=== PATIENT | female | born 1990 | race African-American/Black ===

== ENCOUNTER 2023-12-05 10:09 | Emergency (ER) | payer OTHER, SELFPAY ==
[2023-12-05 11:08] VITALS: BP 141/97; PULSE 75; RESP 18; TEMP 36.4; O2SAT 99; BMI 27.3
--- NOTE | 2023-12-05 11:15 | ED_ITS ---
HPI - General Adult General Chief complaint: Abdominal Pain Stated complaint: Abd pain Time Seen by Provider: 12/05/23 16:19 Source: patient Mode of arrival: ambulatory Limitations: language barrier History of Present Illness ED Provider: brittany DELA CRUZ narrative: Patient is status post normal vaginal delivery on 11/13 complaining of for last 3 days body aches low back denies any significant vaginal discharge no significant abdominal pain no nausea no vomiting no fever or chills patient does not have any PCP Related Data Previous Rx's ?Medication ?Instructions ?Recorded cefuroxime axetil 250 mg tablet 250 mg PO BID 7 days #14 tabs 12/05/23 ibuprofen 600 mg tablet 600 mg PO Q6H PRN fever or pain 12/05/23 #30 tabs Allergies Allergy/AdvReac Type Severity Reaction Status Date / Time No Known Allergies Allergy Verified 12/05/23 11:22 Review of Systems 2 Review of Systems: Yes all other systems are reviewed and are negative PMFSH Social History Social History Smoked in Last 30 Days: No Use of substances other than those prescribed or required for medical reasons: No Advance Directives: No Advance Directives Information Provided: No Do you have a plan to hurt others: No Plan Patient : No Physical Exam ED Vital Signs: Vital Signs - 24 hr 12/05/23 11:08 12/05/23 18:01 Temperature 97.5 F Pulse Rate 75 67 Respiratory Rate 18 16 Blood Pressure 141/97 H 145/91 H Pulse Oximetry 99 97 Oxygen Delivery Method Room Air Room Air BMI result Body Mass Index 27.3 Appearance: Alert. Oriented X3. No acute distress. Eyes: No pallor or icterus ENT: Pharynx normal. Oral Mucosa moist Neck: Normal inspection. Neck supple. CVS: Normal heart rate and rhythm. Pulses normal. Respiratory: No respiratory distress. Equal air entry bilateral, no wheezing/rales/rhonchi Abdomen: Soft and nontender. Bowel sounds are present, no mass palpable, no CVA tenderness Skin: Skin warm and dry. Normal skin color. Normal skin turgor. Extremities: No lower extremity edema. No calf tenderness Neuro: Oriented X 3. Course Course Course Narrative: RME performed by Loretta Huddleston PA-C. Patient is a 33 year old assigned female at presenting to the emergency department with abdominal pain and minimal vaginal bleeding. Patient states on 11/22/2023 she delivered a baby at [facility] and this is her 3rd delivery. Patient states that she had no complications with delivery or the . Detailed physical exam and review of systems are deferred to the primary mill roller. Labs ordered. Patient placed back in the waiting room pending room availability and results. Medications Administered Discontinued Medications Generic Name Dose Route Start Last Admin Trade Name Mehul PRN Reason Stop Dose Admin Ibuprofen 600 mg 12/05/23 18:03 12/05/23 18:14 Ibuprofen 600 Mg Tablet PO 12/05/23 18:04 600 mg ONCE ONE Administration Medical Decision Making Medical Decision Making [facility] Narrative: Patient with nonspecific multiple complaints UA showed WBCs likely UTI discharge patient home on Ceftin and ibuprofen advised to follow with regional sales director Differential Diagnosis Differential Diagnoses: The differential diagnosis associated with the presentation includes Lab Data [facility] Lab Attestation statement: I reviewed the patient's lab results. 12/05/23 11:44 12/05/23 11:44 Labs: Lab Results 12/05/23 12/05/23 12/05/23 Range/Units 11:43 11:44 11:47 WBC 5.1 (4.8-10.8) X10*3/uL RBC 4.42 (4.20-5.50) X10*6/uL Hgb 11.3 L (12.0-16.0) g/dl Hct 35.8 L (37.0-47.0) % MCV 81.0 (80.0-98.0) fL MCH 25.6 L (27.0-33.0) pg MCHC 31.6 (31.0-35.0) g/dl RDW 16.7 H (11.0-16.0) % Plt Count 376 (160-400) X10*3/uL MPV 9.5 (9.4-12.3) fL Immature Gran % (Auto) 0.2 (0.0-0.4) % Neut % (Auto) 61.8 (45-73) % Lymph % (Auto) 27.5 (20-40) % [place] % (Auto) 7.5 (2-11) % Eos % (Auto) 2.4 (0-4) % Baso % (Auto) 0.6 (0-2) % Lymph # (Auto) 1.4 (1.2-4.9) X10*3/uL [place] # (Auto) 0.4 (0.1-1.2) X10*3/uL Eos # (Auto) 0.1 (0.0-0.4) X10*3/uL Baso # (Auto) 0.0 (0.0-0.2) X10*3/uL Abs Immat Gran (auto) 0.01 (0.00-0.03) X10*3/uL Absolute Neuts (auto) 3.2 (2.0-8.3) x10*3/uL Absolute Nucleated RBC 0.000 (0.0-0.012) X10*3/uL Nucleated RBC % (auto) 0.0 (0.0-0.2) /100WBC PT 11.4 (11.1-13.3) SEC INR 0.9 (0.9-1.1) APTT 32.9 (26.0-36.8) SEC Sodium 142 (135-145) mmol/L Potassium 4.3 (3.3-5.1) mmol/L Chloride 108 (96-108) mmol/L Carbon Dioxide 21 L (22-29) mmol/L Anion Gap 17 (12-20) BUN 10 (9-16) mg/dL Creatinine 0.72 (0.5-1.4) mg/dL Estim Creat Clear Calc 98.3 Estimated GFR > 60 Random Glucose 88 (60-115) mg/dL Calcium 9.2 (8.4-10.2) mg/dL Magnesium 2.2 (1.6-2.6) mg/dL Total Bilirubin 0.2 (0.0-1.0) mg/dL AST 17 (5-31) U/L ALT 14 (0-31) U/L Alkaline Phosphatase 116 (39-117) U/L Total Protein 7.2 (6.5-8.0) g/dL Albumin 3.8 (3.5-5.0) g/dL Beta HCG, Quant < 2 mIU/mL Urine Color Urine Appearance Urine pH (5.0-9.0) Ur Specific Wendel (1.005-1.025) Urine Protein (Neg-Trace) mg/dL Urine Glucose (UA) (Negative) mg/dL Urine Ketones (Negative) mg/dL Urine Blood (Negative) Urine Nitrite (Negative) Ur Leukocyte Esterase (Negative) Urine RBC (0-2) /HPF Urine WBC (0-5) /HPF Ur Squamous Epith Cells (0-2) /HPF Urine Bacteria (None Seen) Hyaline Casts (0-2) /LPF Blood Type B Positive Antibody Screen NEGATIVE 12/05/23 Range/Units 18:46 WBC (4.8-10.8) X10*3/uL RBC (4.20-5.50) X10*6/uL Hgb (12.0-16.0) g/dl Hct (37.0-47.0) % MCV (80.0-98.0) fL MCH (27.0-33.0) pg MCHC (31.0-35.0) g/dl RDW (11.0-16.0) % Plt Count (160-400) X10*3/uL MPV (9.4-12.3) fL Immature Gran % (Auto) (0.0-0.4) % Neut % (Auto) (45-73) % Lymph % (Auto) (20-40) % Bonneville % (Auto) (2-11) % Eos % (Auto) (0-4) % Baso % (Auto) (0-2) % Lymph # (Auto) (1.2-4.9) X10*3/uL [place] # (Auto) (0.1-1.2) X10*3/uL Eos # (Auto) (0.0-0.4) X10*3/uL Baso # (Auto) (0.0-0.2) X10*3/uL Abs Immat Gran (auto) (0.00-0.03) X10*3/uL Absolute Neuts (auto) (2.0-8.3) x10*3/uL Absolute Nucleated RBC (0.0-0.012) X10*3/uL Nucleated RBC % (auto) (0.0-0.2) /100WBC PT (11.1-13.3) SEC INR (0.9-1.1) APTT (26.0-36.8) SEC Sodium (135-145) mmol/L Potassium (3.3-5.1) mmol/L Chloride (96-108) mmol/L Carbon Dioxide (22-29) mmol/L Anion Gap (12-20) BUN (9-16) mg/dL Creatinine (0.5-1.4) mg/dL Estim Creat Clear Calc Estimated GFR Random Glucose (60-115) mg/dL Calcium (8.4-10.2) mg/dL Magnesium (1.6-2.6) mg/dL Total Bilirubin (0.0-1.0) mg/dL AST (5-31) U/L ALT (0-31) U/L Alkaline Phosphatase (39-117) U/L Total Protein (6.5-8.0) g/dL Albumin (3.5-5.0) g/dL Beta HCG, Quant mIU/mL Urine Color Yellow Urine Appearance Cloudy Urine pH 7.0 (5.0-9.0) Ur Specific Wendel >= 1.030 H (1.005-1.025) Urine Protein 30 (1+) H (Neg-Trace) mg/dL Urine Glucose (UA) Negative (Negative) mg/dL Urine Ketones Trace (Negative) mg/dL Urine Blood Large (3+) H (Negative) Urine Nitrite Negative (Negative) Ur Leukocyte Esterase Large (3+) H (Negative) Urine RBC >20 H (0-2) /HPF Urine WBC >50 H (0-5) /HPF Ur Squamous Epith Cells 3-5 (0-2) /HPF Urine Bacteria Trace (None Seen) Hyaline Casts 0-2 (0-2) /LPF Blood Type Antibody Screen Discharge Plan Discharge Clinical Impression: UTI (urinary tract infection) Patient Disposition: Home, Self-Care Instructions: Urinary Tract Infection in Women (ED) Additional Instructions: Drink plenty of fluid Take antibiotic as prescribed Follow with PCP/Obgyn Prescriptions: New cefuroxime axetil 250 mg tablet 250 mg PO BID 7 Days Qty: 14 0RF ibuprofen 600 mg tablet 600 mg PO Q6H PRN (Reason: fever or pain) Qty: 30 0RF Referrals: Aristeo Martin MD [Physician] - 1 week Print Language: Comoran Creole
[2023-12-05 11:47] LABS: MANUAL DIFF FLAG NO
[2023-12-05 11:50] LABS: Basophils Percent Auto 0.6 % (0-2); Eosinophils Absolute Auto 0.1 X10*3/uL (0.0-0.4); Eosinophils Percent Auto 2.4 % (0-4); Hematocrit 35.8 % (37.0-47.0); Hemoglobin 11.3 g/dl (12.0-16.0); Imm Gran Abs Auto 0.01 X10*3/uL (0.00-0.03); Imm Gran Pct Auto 0.2 % (0.0-0.4); Lymphocytes Absolute Auto 1.4 X10*3/uL (1.2-4.9); Lymphocytes Percent Auto 27.5 % (20-40); Mean Corpuscular HGB Conc 31.6 g/dl (31.0-35.0); Mean Corpuscular Hemoglobin 25.6 pg (27.0-33.0); Mean Platelet Volume 9.5 fL (9.4-12.3); Monocytes Absolute Auto 0.4 X10*3/uL (0.1-1.2); Monocytes Percent Auto 7.5 % (2-11); Neutrophils Absolute Auto 3.2 x10*3/uL (2.0-8.3); Neutrophils Percent Auto 61.8 % (45-73); Platelet Count 376 X10*3/uL (160-400); Red Blood Count 4.42 X10*6/uL (4.20-5.50); Red Cell Distribution Width 16.7 % (11.0-16.0); White Blood Count 5.1 X10*3/uL (4.8-10.8)
[2023-12-05 11:54] LABS: INTERNATIONAL NORM RATIO 0.9 (0.9-1.1); Prothrombin Time 11.4 SEC (11.1-13.3)
[2023-12-05 11:57] LABS: Partial Thromboplastin Time 32.9 SEC (26.0-36.8)
[2023-12-05 12:06] LABS: Alanine Aminotransferase 14 U/L (0-31); Albumin Level 3.8 g/dL (3.5-5.0); Alkaline Phosphatase 116 U/L (39-117); Anion Gap 17 (12-20); Aspartate Amino Transferase 17 U/L (5-31); Bilirubin Total 0.2 mg/dL (0.0-1.0); Blood Urea Nitrogen 10 mg/dL (9-16); Calcium 9.2 mg/dL (8.4-10.2); Carbon Dioxide 21 mmol/L (22-29); Chloride 108 mmol/L (96-108); Creatinine Clr Calc Pharmacy 98.3; Estimated Glomerular Filt Rate > 60; Glucose Random 88 mg/dL (60-115); Magnesium 2.2 mg/dL (1.6-2.6); Potassium 4.3 mmol/L (3.3-5.1); Sodium 142 mmol/L (135-145); Total Protein 7.2 g/dL (6.5-8.0)
[2023-12-05 13:11] LABS: HCG Quantitative < 2 mIU/mL
[2023-12-05 18:01] VITALS: BP 145/91; PULSE 67; RESP 16; O2SAT 97
[2023-12-05] MEDS: Ibuprofen 600 MG TABLET PO (18:14)
[2023-12-05 18:56] LABS: Appearance Urine Cloudy; Color Urine Yellow; Glucose Urine UA Negative (Negative); Leukocyte Esterase Urine Large (3+) (Negative); Nitrite Urine Negative (Negative); Specific Gravity - Urine >= 1.030 (1.005-1.025); UMIC TRIGGER UACC YES; Urine Blood Large (3+) (Negative); Urine Ketones Trace mg/dL (Negative); Urine Protein 30 (1+) mg/dL (Neg-Trace)
[2023-12-05 19:01] LABS: Bacteria Urine Trace (None Seen); Hyaline Casts Urine 0-2 /LPF (0-2); RBC Urine >20 /HPF (0-2); UACC Culture Trigger YES; WBC Urine >50 /HPF (0-5)
[2023-12-05] MEDS: cefuroxime axetiL 250 MG TABLET PO (19:59)
[2023-12-05 20:10] VITALS: BP 154/92; PULSE 60; RESP 16; TEMP 36.8; O2SAT 99
== END 2023-12-05 20:12 | disposition home or self-care (01) ==
PROVIDERS: Physician Assistant Medical; Emergency Provider Internal Medicine
DX: N39.0 Urinary tract infection, site not specified (principal)
CPT/HCPCS: 36415; 80053; 81001; 83735; 84702; 85025; 85610; 85730; 86850; 86900; 86901; 87086; 99283; 99284

== ENCOUNTER 2024-02-09 12:04 | Outpatient (REF) | payer MEDICAID, SELFPAY ==
[2024-02-09 13:02] LABS: MANUAL DIFF FLAG NO
[2024-02-09 13:15] LABS: Basophils Percent Auto 0.7 % (0-2); Eosinophils Absolute Auto 0.1 X10*3/uL (0.0-0.4); Eosinophils Percent Auto 3.1 % (0-4); Hematocrit 35.8 % (37.0-47.0); Hemoglobin 11.7 g/dl (12.0-16.0); Imm Gran Abs Auto 0.02 X10*3/uL (0.00-0.03); Imm Gran Pct Auto 0.4 % (0.0-0.4); Lymphocytes Absolute Auto 1.8 X10*3/uL (1.2-4.9); Lymphocytes Percent Auto 40.4 % (20-40); Mean Corpuscular HGB Conc 32.7 g/dl (31.0-35.0); Mean Corpuscular Hemoglobin 25.7 pg (27.0-33.0); Mean Corpuscular Volume 78.5 fL (80.0-98.0); Mean Platelet Volume 10.2 fL (9.4-12.3); Monocytes Absolute Auto 0.4 X10*3/uL (0.1-1.2); Monocytes Percent Auto 7.7 % (2-11); Neutrophils Absolute Auto 2.2 x10*3/uL (2.0-8.3); Neutrophils Percent Auto 47.7 % (45-73); Platelet Count 302 X10*3/uL (160-400); Red Blood Count 4.56 X10*6/uL (4.20-5.50); White Blood Count 4.5 X10*3/uL (4.8-10.8)
[2024-02-09 13:30] LABS: Anion Gap 11 (12-20); Blood Urea Nitrogen 10 mg/dL (9-16); Calcium 8.7 mg/dL (8.4-10.2); Carbon Dioxide 25 mmol/L (22-29); Chloride 111 mmol/L (96-108); Estimated Glomerular Filt Rate > 60; Glucose Random 109 mg/dL (60-115); Potassium 3.8 mmol/L (3.3-5.1); Sodium 143 mmol/L (135-145)
== END 2024-02-09 12:05 | disposition home or self-care (01) ==
LOC: HO.HHCL 12:04
PROVIDERS: Visit Provider Internal Medicine
DX: N92.6 Irregular menstruation, unspecified (principal); R03.0 Elevated blood-pressure reading, without diagnosis of hypertension
CPT/HCPCS: 36415; 80048; 85025

== ENCOUNTER 2024-04-13 16:47 | Outpatient (REF) | payer MEDICAID, SELFPAY ==
--- NOTE | ~2024-04-13 | CT_ITS ---
EXAMINATION: CT ABDOMEN AND PELVIS WITHOUT CONTRAST CLINICAL INFORMATION: Back pain, hematuria, rule out nephrolithiasis. COMPARISON: None available. TECHNIQUE: Multidetector volumetric imaging was performed from the superior aspect of the liver through the pubic symphysis. Sagittal and coronal reformatted images were obtained on the technologist's workstation. This CT examination was performed using dose optimization techniques as appropriate, variously including the following: *Automated exposure control *Adjustment of mA and/or kV according to patient size (this includes techniques or standardized protocols for targeted exams where dose is matched to indication/reason for exam; i.e. extremities or head) *Use of iterative reconstruction technique DLP: 421 mGy-cm Exam submitted for review 06/08/2024 8:53 AM DELINQUENT TAX COLLECTOR. FINDINGS: LUNG BASES: -Lung bases are clear bilaterally. -Heart size is normal. -No effusions. -Normal GE junction. LIVER, GALLBLADDER, AND BILIARY TREE: The liver is normal in size, shape, and attenuation. No focal hepatic lesion or biliary ductal dilatation is present. The gallbladder is unremarkable with no evidence of radiopaque gallstones, gallbladder wall thickening, or obvious pericholecystic inflammatory changes. PANCREAS: Unremarkable. SPLEEN: Unremarkable. ADRENAL GLANDS: Unremarkable. KIDNEYS AND URETERS: The kidneys are normal in size, shape, and attenuation. No hydronephrosis, hydroureter, or calculi seen. No perinephric stranding. BLADDER: Unremarkable. GASTROINTESTINAL TRACT: The small and large bowel are unremarkable. The appendix is unremarkable. ABDOMINAL WALL: No significant hernia is appreciated. LYMPH NODES: Normal. VASCULAR: Unremarkable. PELVIC VISCERA: Uterus and adnexal structures appear normal. No masses. OSSEOUS STRUCTURES: No suspicious lytic or blastic bone lesion. CT/CT abdomen pelvis wo IV con IMPRESSION: 1. No acute findings in the abdomen or pelvis. No explanation for back pain and hematuria. 2. There is no evidence of urological calculus, hydronephrosis, or hydroureter. Electronically signed by: Cheng Henson MD 06/08/2024 10:49 AM [facility]
== END 2024-04-13 16:48 | disposition home or self-care (01) ==
LOC: HO.CT 16:47
PROVIDERS: PCP Internal Medicine; Visit Provider Internal Medicine
DX: M54.50 Low back pain, unspecified (principal); R31.9 Hematuria, unspecified
CPT/HCPCS: 74176

== ENCOUNTER → 2024-04-13 16:50 | Outpatient (BNV) | payer MEDICAID, SELFPAY | PROVIDERS: PCP Internal Medicine; Visit Provider Radiology Diagnostic Radiology | DX: R31.9 Hematuria, unspecified (principal); M54.50 Low back pain, unspecified | CPT/HCPCS: 74176 ==

== ENCOUNTER 2024-10-30 12:21 | Outpatient (REF) | payer MEDICAID, SELFPAY ==
--- NOTE | ~2024-10-30 | XR_ITS ---
EXAMINATION: XR THORACIC SPINE CLINICAL INFORMATION: PAIN COMPARISON: None available. TECHNIQUE: 3 views of the thoracic spine were obtained. FINDINGS: There is no acute fracture or bone destruction seen. The vertebral alignment is normal. There is no disc space narrowing. There is no abnormality of the paraspinal soft tissues. XR/XR thoracic spine 2V IMPRESSION: Unremarkable thoracic spine examination. Electronically signed by: Glenn Valladares MD 10/30/2024 01:48 PM EDT
--- NOTE | ~2024-10-30 | XR_ITS ---
EXAMINATION: XR LUMBOSACRAL SPINE 3 views CLINICAL INFORMATION: PAIN COMPARISON: None. TECHNIQUE: Three views of the lumbosacral spine. FINDINGS: There is normal lumbar lordosis. The vertebral heights, alignment and disc heights are normal. No visible acute fracture, dislocation or subluxation seen. The soft tissues are normal. The SI joints are normal. The paravertebral soft tissues are normal. XR/XR lumbar spine 2-3V IMPRESSION: Unremarkable lumbar spine exam. Electronically signed by: Glenn Valladares MD 10/30/2024 01:47 PM EDT
--- OUTSIDE RECORDS SUMMARY | 2024-10-30 13:43 | XMS_ITS | Clinical Summary ---
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 90 tablet 3 02/09/20 24 025 Active methylPREDNIS olone (Medrol Dospak) 4 MG tablets Follow schedule on package instructions 21 tablet 10/31/19 25 025 Active acetaminophen (Tylenol 8 Hour) 650 MG ER tablet Take 1 tablet (650 mg) by mouth every 8 (eight) hours if needed for mild pain. Do not crush, chew, or split. 40 tablet 1 10/31/19 25 025 Active lidocaine (Lidoderm) 5 % patch Apply 2 patches topically if needed each day for mild pain. Remove & discard patch within 12 hours or as directed by MD. 60 patch 1 10/31/19 25 Active naproxen (Naprosyn) 500 MG tablet Take 1 tablet (500 mg) by mouth if needed in the morning and at bedtime for mild pain. 40 tablet 1 10/31/19 25 026 Active medroxyPROGES TERone (Depo-Provera ) 150 MG/ML injectionIndi cations:Encou nter for female control Inject 1 mL (150 mg) into the muscle 1 (one) time for 1 dose. 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 contraception monitoring/administration 10/09/2024 Assessment & Plan (10/09/2024 4:00 PM EDT): Brochure with full information of different control methods in her anvik language Tiffanie provided today It was decided she will continue with Depo-Provera and then after she gets for second time she will think about having an IUD Missed period 10/09/2024 Assessment & Plan (10/09/2024 3:59 PM EDT): Urine test will be done today, results reviewed with patient it is negative Encounter for female control 02/22/2024 Assessment & Plan (02/22/2024 1:42 PM EDT): Patient will get her depo in 03/2024 Acute midline low back pain without sciatica 01/2024 Assessment & Plan (02/02/2024 10:34 AM EDT): 33 year old female with no significant PMHx, 2 months post pesents with c/o 3 days of intermittent midline back pain, when severe 8/10 currently 1/10. She states the back pain was severe last night but right now is down to 1/10. On exam there is NO tenderness , no evidence of spasm, full ROM of LS spine, Urine positive for LARGE blood, negative for all others Vital signs stable aside from mild elevation of BP. Abdomen is soft, no CVA tenderness Etiology ? Need to rule out kidney stones Plan: CT abdomen and Pelvis. Tylenol PRN for pain, instructed to come back if symptoms do not improve or present herself to the nearest ER if they worsen or any other associated symptoms present Elevated blood pressure reading 02/02/2024 Assessment & Plan (02/02/2024 10:39 AM EDT): Likely due to pain, will bring her back in 1 week for a BP check and if persistently elevated will decide course of action 'appointment scheduled for 02/11 here at the [facility] Has appointment for CHEMICAL DEPENDENCY THERAPIST 02/22/2024 Irregular menses 02/02/2024 Assessment & Plan (02/22/2024 1:42 PM EDT): TSH Pelvic US 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 Assessment & Plan (02/02/2024 10:40 AM EDT): Patient gave in [place], c/o irregular menses since giving , denies any pelvic or abdominal pain, no vaginal discharge Plan: Refer to Midwives Obtain CBC Headache 02/02/2024 Assessment & Plan (02/22/2024 1:42 PM EDT): Patient new baby I advise drink plenty of water to maintain hydration and acetaminophen PRN Assessment & Plan (02/02/2024 10:44 AM EDT): Mild, non specific, no neuro findings, no meningismus, no fever, Plan: Acetaminophen PRN, Obtain CBC rule out anemia ( pt post ) Follow up if no improvement Encounters Date Type Department Care Team Description 10/30/2024 11:15 AM EDT Office Visit [facility] [address] [place] [phone] Ketty Guevara DO Chronic bilateral low back pain without sciatica (Primary Dx); Chronic mid back pain 10/30/2024 Travel 10/30/2024 Telephone [facility] [address] [place] [phone] Karen Bhakta MD Triage 10/09/2024 1:45 PM EDT Office Visit [facility] [address] [place] [phone] Karen Bhakta MD Family planning, Depo-Provera contraception monitoring/administr ation (Primary Dx); Missed period 10/09/2024 Travel 10/02/2024 Patient Outreach [facility] [address] [place] [address] Karen Bhakta MD Pre-visit Planning ([facility] unable to reach LVM) 10/02/2024 Telephone [facility] [address] [place] [address] Karen Bhakta MD Chart Prep 09/19/2024 10:00 AM EDT Clinical Support [facility] [address] [place] [address] Lynette Kulkarni RN Encounter for surveillance of injectable contraceptive 09/19/2024 Telephone [facility] [address] [place] [address] Karen Bhakta MD Appointment Request 09/19/2024 Travel 09/07/2024 Population Health Risk Score Community Care [facility] ([facility] Department [address] [phone] Provider, Population Health Generic 08/06/2024 Telephone [facility] [address] [place] [address] Karen Bhakta MD Referral (Pt walked in stating she received a letter from [facility] in regards to someone from [facility] trying to call her to book an appt. Pt states she called [facility] along with Suzie Moreno electrician refinery and was told by someone in the office that pt was not in the system and that a referral was not received on their end. ) from Last 3 Months Immunizations Name Administration Dates Next Due Tdap 09/27/2023 Social History Tobacco Use Types Packs/Day Years Used Date Smoking Tobacco: Never Smokeless Tobacco: Never Tobacco Cessation:Counseling Given: Not Answered Alcohol Use Standard Drinks/Week Comments Never 0 (1 standard drink = 0.6 oz pur e alcohol) Depression Answer Date Recorded Patient Health Questionnaire-9 Score 0 02/22/2024 Patient Health Questionnaire-9 Score 0 02/22/2024 Last PHQ-9: Questionnaire Data Not on file 0 02/22/2024 Housing Stability Answer Date Recorded What is your housing situation today? I have joe macdonald 02/22/[address] you li ve. Do you have problems with any of the following? None of the above 02/22/2024 Food Insecurity Answer Date Recorded Within the past 12 months, y ou worried that your food would run out before you got money to buy more: Never True 02/22/2024 Within the past 12 months,th e food you bought just didn't last and you didn't have enough money to get more: Never True Transportation Answer Date Recorded In the past 12 months, has l ack of transportation kept you from medical appts, meetings, work or from getting things needed for daily living? No 02/22/2024 Utilities Answer Date Recorded In the past 12 months, has t he electric, gas, oil or water company threatened to shut off services in your home? No 02/22/2024 Depression Answer Date Recorded Patient Health Questionnaire-2 Score 0 02/22/2024 Internet Access Answer Date Recorded Internet Access Q1 Yes 02/24/2024 Internet Access Q2 Not on file 02/24/2024 Comments No Sex and Gender Information Value Date Recorded Sex Assigned at Female 01/06/2024 10:54 AM EDT Legal Sex Female 10:49 AM EDT Gender Identity Female 01/06/2024 10:54 AM EDT Sexual Orientation Straight 01/06/2024 10 :54 AM EDT Last Filed Vital Signs Vital Sign Reading Time Taken Comments Blood Pressure 128/70 10/30/2024 10:56 AM EDT Pulse 70 10/30/2024 10:56 AM EDT Temperature 37.1 ??C (98.8 ??F) 10/30/2024 10:56 AM E DT Respiratory Rate 16 10/30/2024 10:56 AM EDT Oxygen Saturation 99% 10/09/2024 1:38 PM EDT Inhaled Oxygen Concentration - - Weight 74.6 kg (164 lb 6.4 oz) 10/30/2024 10:56 AM EDT Height 160 cm (5' 3 ) 10/30/2024 10:56 AM EDT Body Mass Index 29.12 10/30/2024 10:56 AM EDT Plan of Treatment Upcoming Encounters Date Type Department Care Team (Late st Contact Info) Description 11/30/2024 2:45 PM EDT Procedure Visit [facility] [address] [place] [address] Karen Bhakta MD [address] [place] [address] 12/05/2024 10:00 AM EDT Clinical Support [address] [address] Health Maintenance Due Date Last Done Comments Hepatitis B Vaccines (1 of 3 - 19+ 3-dose series) 2010 Pap Smear 2012 Cervical Cancer Screening 2021 HPV/Cotest 2021 COVID-19 Vaccine (1 - 2023-2 5 season) 2024 Influenza Vaccine (#1) 2024 Depression Screening 02/21/2025 02/22/2024, 02/22/2024 SDOH Screening 02/21/2025 02/22/2024 Family Planning (PISQ) 07/04/2025 07/04/2024 Alcohol/Substance Use Screening 10/09/2025 10/09/2024 Tobacco Screening 10/09/2025 10/09/2024 DTaP/Tdap/Td Vaccines (2 - T d or Tdap) 09/26/2033 09/27/2023 Zoster Vaccines (1 of 2) 2041 RSV Patients and Patients Aged 60 years or older (1 - 1-dose 75+ series) 2066 HIV Screening Completed 02/22/2024 Hepatitis C Screening Completed 02/22/2024 HIB Vaccines Aged Out No longer eligi ble based on patient's age to complete this topic HPV Vaccines Aged Out No longer eligi ble based on patient's age to complete this topic Hepatitis A Vaccines Aged Out No long er eligible based on patient's age to complete this topic IPV Vaccines Aged Out No longer eligi ble based on patient's age to complete this topic Meningococcal Vaccine Aged Out No diaz ashley eligible based on patient's age to complete this topic Pneumococcal Vaccine: Pediatrics (0 to 5 Years) and At-Risk Patients (6 to 49) Years) Aged Out No longer eligible b ased on patient's age to complete this topic RSV under 20 months Aged Out No longe r eligible based on patient's age to complete this topic Rotavirus Vaccines Aged Out No longer eligible based on patient's age to complete this topic Procedures Procedure Name Priority Date/Time Associated Diagnosis Comments POCT , URINE Routine 10/30/2024 11:57 AM EDT Chronic bilateral low back pain without sciatica POCT URINALYSIS DIPSTICK Routine 10/30/2024 11:56 AM EDT Chronic bilateral low back pain without sciatica POCT , URINE Routine 10/09/2024 2:32 PM EDT Missed period POCT , URINE Routine 09/19/2024 10:14 AM EDT Encounter for surveillance of injectable contraceptive HEPATITIS C VIRAL RNA, QUANTITATIVE, REAL-TIME PCR Routine 02/22/2024 11:33 AM EDT Acute nonintractable headache, unspecified headache type HIV 1/2 ANTIGEN/ANTIBODY, FOURTH GENERATION W/RFL Routine 02/22/2024 11:33 AM EDT Acute nonintractable headache, unspecified headache type from Last 3 Months or Most Recently Relevant to Health Maintenance Results * POCT Urine (10/30/2024 11:57 AM EDT) Only the most recent of3 resultswithin the time period is included. Preg Test, Ur Negative Negative, Indeterminate, None Detected, Invalid, Specimen unsatisfactory for evaluation, Weakly Positive, 2+ QC Media Lot # [id number] Lot# Expiration Date ,312,026 Urine 10/30/2024 11:5 7 AM EDT Ketty Guevara DO POINT OF CARE TEST ENTER/BERNARDINO T ORDERABLES Final Result * POCT Urinalysis (10/30/2024 11:56 AM EDT) Color, UA Yellow Clarity, UA Cloudy Glucose, UA Negative Bilirubin, UA Negative Ketones, UA Negative Spec Grav, UA 1.030 Blood, UA Negative Negative, None Detected pH, UA 6.0 Protein, UA Trace Urobilinogen, UA 0.2 Leukocytes, UA Negative Negative, Rare, Trace Nitrite, UA Negative Negative, None Detected QC Media Lot # [id number] Lot# Expiration Date ,025 Urine 10/30/2024 11:5 6 AM EDT us Ketty Guevara DO POINT OF CARE TEST ENTER/BERNARDINO T ORDERABLES Final Result * Hepatitis C Viral RNA, Quantitative, Real-Time PCR (02/22/2024 11:33 AM EDT) Hepatitis C Viral Load <15 NOT DETECTED NOT DETECTED IU/mL [facility] HCV Log PCR <1.18 NOT DETECTED NOT DETECTED Log IU/mL [facility] Comment:For additional infor mation, please refer [email or web address]/[email or web address](This link is being provided for informational/educational purposes only.)THIS TEST WAS PERFORMED AT:[facility] [place] [id number] GILL MD Blood 02/22/2024 11:3 3 AM EDT 02/22/2024 1:25 PM EDT us Karen Abraham MD LAB BLOOD ORDERABLES Final Result [facility] [address] [place] [phone] * HIV-1/2 Antigen and Antibodies, Fourth Generation, with Reflexes (02/22/2024 11:33 AM EDT) HIV AB/AG Nonreactive Nonreactive [facility] Comment:HIV-1 p24 Ag and/or HIV-1/HIV-2 Ab not detected.A test result that is nonreactive does not exclude thepossibility of exposure to or infection with HIV-1 and/orHIV-2. Nonreactive results in this assay for individualswith prior exposure to HIV-1 and/or HIV-2 may be due toantigen and antibody levels that are below the limit ofdetection of this assay.The [employer] HIV Ag/Ab Combo assay result andsupplemental assay results should be interpreted inconjunction with the patient's clinical presentation,history and other laboratory results. If the results areinconsistent with clinical evidence, additional testing issuggested to confirm the result. Blood Venous blood specimen / Unknown 02/22/2024 11:33 AM EDT 02/22/2024 1:25 PM EDT Karen Abraham MD LAB BLOOD ORDERABLES Final Result [facility] [address] [place] [phone] [phone] from Last 3 Months or Most Recently Relevant to Health Maintenance Insurance [facility] C[employer] [facility] STAND ADULT Care Teams Plant Superintendent Relationship Specialty Start Date End Date Karen Bhakta MD [address] [place] [phone] PCP - General Internal Medicine 02/22/24
--- OUTSIDE RECORDS SUMMARY | 2024-10-30 13:43 | XMS_ITS | Encounter Summary ---
Author Organization [employer] Address [address] [facility] [address] [place] [address] Care Team Providers Care Space Officer Name Role Phone Karen Bhakta MD Primary Care Provide r Reason for Referral * Consultation (Routine) - Pending Review Specialty Diagnoses / Procedures Referred By Glendy correa Referred To Contact Physical Therapy Diagnoses Chronic bilateral low back pain without sciatica Chronic mid back pain Ketty Guevara DO [address] [place] [address] Phone: tel: fax: Referral ID Status Reason Start Date Expiration Date Visits Requested Visits Authorized [id number] Pending Review Specialty Services Required 10/30/2024 10/30/2025 1 1 Encounter Details Date Type Department Care Team (Late st Contact Info) Description 10/30/2024 11:15 AM EDT Office Visit [facility] MEDICINE [address], [place] [phone] Ketty Guevara DO [address] [place] [address] Chronic bilateral low back pain without sciatica (Primary Dx); Chronic mid back pain Social History Tobacco Use Types Packs/Day Years Used Date Smoking Tobacco: Never Smokeless Tobacco: Never Alcohol Use Standard Drinks/Week Comments Never 0 [...] Orientation Straight 01/06/2024 10 :54 AM EDT documented as of this encounter Last Filed Vital Signs Vital Sign Reading Time Taken Comments Blood Pressure 128/70 10/30/2024 10:56 AM EDT Pulse 70 10/30/2024 10:56 AM EDT Temperature 37.1 ??C (98.8 ??F) 10/30/2024 10:56 AM E DT Respiratory Rate 16 10/30/2024 10:56 AM EDT Oxygen Saturation - - Inhaled Oxygen Concentration - - Weight 74.6 kg (164 lb 6.4 oz) 10/30/2024 10:56 AM EDT Height 160 cm (5' 3 ) 10/30/2024 10:56 AM EDT Body Mass Index 29.12 10/30/2024 10:56 AM EDT documented in this encounter Plan of Treatment Upcoming Encounters Date Type Department Care Team (Late st Contact Info) Description 11/30/2024 2:45 PM EDT Procedure Visit [facility] MEDICINE [address] [place] [address] Karen Bhakta MD [address] [place] [address] 12/05/2024 10:00 AM EDT Clinical Support [facility] [address] [place] [address] Scheduled Orders Name Type Priority Associated Diagnoses Orde r Schedule Culture, Urine, Routine Microbiology Routine Chronic bilateral low back pain without sciatica Expected: 10/30/2024 (Approximate), Expires: 10/30/2025 XR Thoracic Spine 2 Views Imaging Routine Chronic bilateral low back pain without sciatica Chronic mid back pain Expected: 10/30/2024, Expires: 10/30/2025 XR Lumbar Spine 2-3 Views Imaging Routine Chronic bilateral low back pain without sciatica Chronic mid back pain Expected: 10/30/2024, Expires: 10/30/2025 Scheduled Referrals Name Type Priority Associated Diagnoses Orde r Schedule Referral to Physical Therapy Outpatient Referral Routine Chronic bilateral low back pain without sciatica Chronic mid back pain Expected: 10/30/2024 (Approximate), Expires: 10/30/2025 documented as of this encounter Procedures Procedure Name Priority Date/Time Associated Diagnosis Comments POCT , URINE Routine 10/30/2024 11:57 AM EDT Chronic bilateral low back pain without sciatica POCT URINALYSIS DIPSTICK Routine 10/30/2024 11:56 AM EDT Chronic bilateral low back pain without sciatica documented in this encounter Results * POCT Urine (10/30/2024 11:57 AM EDT) Preg Test, Ur Negative Negative, Indeterminate, None Detected, Invalid, Specimen unsatisfactory for evaluation, Weakly Positive, 2+ QC Media Lot # [id number] Lot# Expiration Date [id number] Urine 10/30/2024 11:5 7 AM EDT Ketty [...] Media Lot # [id number] Lot# Expiration Date Urine 10/30/2024 11:5 6 AM EDT Ketty Guevara DO POINT OF CARE TEST ENTER/BERNARDINO T ORDERABLES Final Result documented in this encounter Visit Diagnoses Diagnosis Chronic bilateral low back pain without sciatica- Primary Chronic mid back pain documented in this encounter Additional Health Concerns Assessment Noted Time PHQ-9 Depression Total Score: 0 02/22/20 9:38 AM EDT documented as of this encounter Care Teams Space Officer Relationship Specialty Start Date End Date Karen Bhakta MD [address] [place] [address] PCP - General Internal Medicine 02/22/24 documented as of this encounter
--- OUTSIDE RECORDS SUMMARY | 2024-10-30 13:43 | XMS_ITS | Encounter Summary ---
Author Organization [employer] Address [address] [facility] [address] [place] [id number] Care Team Providers Care Lens Fabricating Machine Tender Name Role Phone Karen Bhakta MD Primary Care Provide r Reason for Visit * Reason Onset Date Comments Triage 10/30/2024 Encounter Details Date Type Department Care Team (Late st Contact Info) Description 10/30/2024 Telephone [facility] MEDICINE [address], [place] [phone] Karen Bhakta MD [address] [place] [address] Triage Social History Tobacco Use Types Packs/Day Years [...] AM EDT documented as of this encounter Miscellaneous Notes * Telephone Encounter - Deisy Youngblood RN - 10/30/2024 10:15 AM EDT Patient presented to the red team FD with c/o back pain. Patient reports she has had back pain x11 months (since delivering child) however it has worsened. Patient reports the pain is from her neck down to the her lower back. Patient reports pain is rated a 9/10 and it is causing discomfort, preventing patient from being able to sleep. Patient denies trailing any OTC medications or applying heating pad. Per chart review, patient had a CT abd/pelvis ordered w/o contrast on 02/02/24 d/t hematuria and low back pain however it appears it was never scheduled as phone numbers in chart were wrong numbers . RN had FD update phone numbers in chart. RN scheduled patient for an appointment with Dr. Guevara at 11:15am today. Patient agreed to appointment date and time. Patient to f/u PRN. documented in this encounter Plan of Treatment Upcoming Encounters Date Type Department Care Team (Late st Contact Info) Description 11/30/2024 2:45 PM EDT Procedure Visit [facility] MEDICINE [address] [place] [address] Karen Bhakta MD [address] [place] [address] 12/05/2024 10:00 AM EDT Clinical Support [facility] [address] [place] [address] documented as of this encounter Visit Diagnoses Not on filedocumented in this encounter Additional Health Concerns Assessment Noted Time PHQ-9 Depression Total Score: 0 02/22/20 9:38 AM EDT documented as of this encounter Care Teams Lens Fabricating Machine Tender Relationship Specialty Start Date End Date Karen Bhakta MD [address] [place] [address] PCP - General Internal Medicine 02/22/24 documented as of this encounter
--- OUTSIDE RECORDS SUMMARY | 2024-10-30 13:43 | XMS_ITS | Encounter Summary ---
Author Organization [employer] Address [address] [facility] [address] [place] [address] Care Team Providers Care [id number] Operator Name Role Phone Karen Bhakta MD Primary Care Provide r Encounter Details Date Type Department Care Team (Latest Contact Info) Description 10/30/2024 Travel Social History Tobacco Use Types Packs/Day Years [...] is your housing situation today? I have joefrank macdonald 02/22/[address] you [...] AM EDT documented as of this encounter Plan of Treatment Upcoming Encounters Date Type Department Care Team (Late st Contact Info) Description 11/30/2024 2:45 PM EDT Procedure Visit [facility] MEDICINE [address] [place] [phone] Karen Bhakta MD [address] [place] [id number] 12/05/2024 10:00 AM EDT Clinical Support [address] [address] documented as of this encounter Visit Diagnoses Not on filedocumented in this encounter Additional Health Concerns Assessment Noted Time PHQ-9 Depression Total Score: 0 02/22/20 24 9:38 AM EDT documented as of this encounter Care Teams As400 Operator Relationship Specialty Start Date End Date Karen Bhakta MD [address] [place] [id number] PCP - General Internal Medicine 02/22/24 documented as of this encounter
== END 2024-10-30 12:22 | disposition home or self-care (01) ==
LOC: HO.HHCX 12:21
PROVIDERS: Visit Provider Family Medicine
DX: M54.50 Low back pain, unspecified (principal); M54.9 Dorsalgia, unspecified; G89.29 Other chronic pain
CPT/HCPCS: 72070; 72100; 87086

== ENCOUNTER → 2024-10-30 12:22 | Outpatient (BNV) | payer MEDICAID, SELFPAY | PROVIDERS: Visit Provider Radiology Diagnostic Radiology | DX: M54.6 Pain in thoracic spine (principal); M54.50 Low back pain, unspecified | CPT/HCPCS: 72070; 72100 ==

== ENCOUNTER 2024-11-30 16:48 | Outpatient (REF) | payer MEDICAID, SELFPAY ==
--- OUTSIDE RECORDS SUMMARY | 2024-11-30 16:50 | XMS_ITS | Encounter Summary ---
Author Organization [employer] Address [address] [place] [address] Care Team Providers Care Director Of Education And Training Name Role Phone Karen Bhakta MD Primary Care Provide r Reason for Visit * Reason Comments Gynecologic Exam Encounter Details Date Type Department Care Team (Latest Contact Info) Description 11/30/2024 2:45 PM EDT Procedure Visit [facility] MEDICINE [address] [place] [address] Karen Bhakta MD [address] [place] [address] Encounter for Papanicolaou smear for cervical cancer screening (Primary Dx); Acute midline low back pain without sciatica Social History Tobacco Use Types Packs/Day Years [...] Access Q2 Not on file 02/24/2024 Comments Unknown Sex and Gender Information Value Date Recorded Sex Assigned at Female 01/06/2024 10:54 AM EDT Legal Sex Female 10:49 AM EDT Gender Identity Female 01/06/2024 10:54 AM EDT Sexual Orientation Straight 01/06/2024 10 :54 AM EDT documented as of this encounter Last Filed Vital Signs Vital Sign Reading Time Taken Comments Blood Pressure 122/94 11/30/2024 2:47 PM EDT Pulse 100 11/30/2024 2:47 PM EDT Temperature 36.2 ??C (97.2 ??F) 11/30/2024 2:47 PM ED T Respiratory Rate 16 11/30/2024 2:47 PM EDT Oxygen Saturation - - Inhaled Oxygen Concentration - - Weight 74.2 kg (163 lb 8 oz) 11/30/2024 2:47 PM EDT Height 160 cm (5' 3 ) 11/30/2024 2:47 PM EDT Body Mass Index 28.96 11/30/2024 2:47 PM EDT documented in this encounter Progress Notes * Karen Abraham MD - 11/30/2024 2:45 PM EDT SUBJECTIVE: Jovan Conroy is a 34 y.o. year old female who presents for Pap . Patient is here for her Pap appointment she denies any breast pain, lumps, changes in the right skin, nipple retraction or discharge Patient denies any pelvic pain, dyspareunia, vaginal discharge or irregular bleeding Acute Concerns: Patient was concerned regarding her physical therapy referral, reports she was called to regarding this but there was some delay in which barriers, today she is requesting some help with this Social History Social History Narrative Not on file Problem List[1] Acute midline low back pain without sciatica Elevated blood pressure reading Irregular menses Headache Encounter for female control Family planning, Depo-Provera contraception monitoring/administration Missed period Encounter for Papanicolaou smear for cervical cancer screening Family History[2] Review of Systems Constitutional: Negative. HENT: Negative. Respiratory: Negative. Cardiovascular: Negative. Genitourinary: Negative. OBJECTIVE: Vitals: 11/30/24 1447 BP: (!) 122/94 BP Location: Right arm Patient Position: Sitting BP Cuff Size: Adult Pulse: 100 Resp: 16 Temp: 97.2 ??F (36.2 ??C) TempSrc: Oral Weight: 163 lb 8 oz (74.2 kg) Height: 5' 3 (1.6 m) Physical Exam Exam conducted with a simonizer present. Constitutional: Appearance: Normal appearance. Cardiovascular: Rate and Rhythm: Normal rate and regular rhythm. Pulmonary: Effort: Pulmonary effort is normal. Breath sounds: Normal breath sounds. Abdominal: General: Abdomen is flat. Palpations: Abdomen is soft. Genitourinary: Vagina: Normal. Cervix: Normal. Uterus: Normal. Musculoskeletal: Right lower leg: No edema. Left lower leg: No edema. Neurological: Mental Status: She is alert. Follow Up: No follow-ups on file. Medications Ordered Prior to Encounter[3] Problem List Items Addressed This Visit Encounter for Papanicolaou smear for cervical cancer screening - Primary Pap smear and pelvic exam done patient will be contacted with results Relevant Orders Pap Smear Acute midline low back pain without sciatica Today patient was helped regarding her physical therapy referral [1] Patient Active Problem List Diagnosis Acute midline low back pain without sciatica Elevated blood pressure reading Irregular menses Headache Encounter for female control Family planning, Depo-Provera contraception monitoring/administration Missed period Encounter for Papanicolaou smear for cervical cancer screening [2] No family history on file. [3] Current Outpatient Medications on File Prior to Visit Medication Sig Dispense Refill [] acetaminophen (Tylenol 8 Hour) 650 MG ER tablet Take 1 tablet (650 mg) by mouth every 8 (eight) hours if needed for mild pain. Do not crush, chew, or split. 40 tablet 1 lidocaine (Lidoderm) 5 % patch Apply 2 patches topically if needed each day for mild pain. Remove & discard patch within 12 hours or as directed by . 60 patch 1 naproxen (Naprosyn) 500 MG tablet Take 1 tablet (500 mg) by mouth if needed in the morning and at bedtime for mild pain. 40 tablet 1 Vit-Fe Fumarate-FA ( Vitamins) 28-0.8 MG tablet Take 1 tablet by mouth Once per day. 90 tablet 3 Current Facility-Administered Medications on File Prior to Visit Medication Dose Route Frequency Provider Last Rate Last Admin medroxyPROGESTERone (Depo-Provera) injection 150 mg 150 mg Intramuscular q3 months Karen Abraham MD 150 mg at 09/19/24 1040 documented in this encounter Miscellaneous Notes * Assessment & Plan Note - Karen Abraham MD - 11/30/2024 4:44 PM EDT Associated Problem(s): Encounter for Papanicolaou smear for cervical cancer screening Pap smear and pelvic exam done patient will be contacted with results * Assessment & Plan Note - Karen Abraham MD - 11/30/2024 4:44 PM EDT Associated Problem(s): Acute midline low back pain without sciatica Today patient was helped regarding her physical therapy referral documented in this encounter Plan of Treatment Upcoming Encounters Date Type Department Care Team (Late st Contact Info) Description 12/05/2024 10:00 AM EDT Clinical Support [facility] MEDICINE [address] [place] [address] Scheduled Orders Name Type Priority Associated Diagnoses Orde r Schedule Pap Smear Pathology and Cytology Routine Encounter for Papanicolaou smear for cervical cancer screening Ordered: 11/30/2024 documented as of this encounter Visit Diagnoses Diagnosis Encounter for Papanicolaou smear for cervical cancer screening- Primary Acute midline low back pain without sciatica documented in this encounter Additional Health Concerns Assessment Noted Time PHQ-9 Depression Total Score: 0 02/22/20 24 9:38 AM EDT documented as of this encounter Care Teams Director Of Education And Training Relationship Specialty Start Date End Date Karen Bhakta MD [address] [place] [address] PCP - General Internal Medicine 02/22/24 documented as of this encounter
[2024-12-05 13:46] LABS: HPV Genotype 16 Negative (Negative); HPV Genotype 18 Negative (Negative); HPV High Risk Negative (Negative)
== END 2024-11-30 16:49 | disposition home or self-care (01) ==
LOC: HO.HHCLNP 16:48
PROVIDERS: Visit Provider Internal Medicine
DX: Z12.4 Encounter for screening for malignant neoplasm of cervix (principal)
CPT/HCPCS: 87626; 88175

== ENCOUNTER 2025-02-05 09:00 | Outpatient (RCR) | payer MEDICAID, SELFPAY | END 2025-03-14 14:35 | disposition home or self-care (01) | LOC: HO.PT 09:00 | PROVIDERS: PCP Internal Medicine; Visit Provider Family Medicine | DX: M54.50 Low back pain, unspecified (principal); M54.89 Other dorsalgia; G89.29 Other chronic pain | CPT/HCPCS: 97110; 97112; 97140; 97161 ==